=== PATIENT | female | born 1955 | race Caucasian/White ===

== ENCOUNTER 2017-11-09 08:00 | Outpatient (CLI) | payer OTHER | END 2017-11-09 08:01 | disposition home or self-care (01) | LOC: BICMAMMO 08:00 | PROVIDERS: ATTEND Family Medicine | DX: Z12.31 Encounter for screening mammogram for malignant neoplasm of breast (principal) | CPT/HCPCS: 77063; 77067; G0202 ==

== ENCOUNTER 2018-12-21 08:07 | Outpatient (CLI) | payer OTHER | END 2018-12-21 08:08 | disposition home or self-care (01) | LOC: BICMAMMO 08:07 | PROVIDERS: ATTEND Family Medicine | DX: Z12.31 Encounter for screening mammogram for malignant neoplasm of breast (principal); Z85.43 Personal history of malignant neoplasm of ovary | CPT/HCPCS: 77063; 77067 ==

== ENCOUNTER 2020-09-24 09:09 | Outpatient (CLI) | payer OTHER ==
--- NOTE | 2020-09-24 09:25 | RAD ---
XR Chest Pa Lat STANDARD HISTORY: Chest pain COMPARISON: 04/20/2017 FINDINGS: The heart size is normal. The lungs are well expanded without focal areas of consolidation, pneumothorax or pleural effusions. Calcified granuloma in the left upper lobe is stable. There are mild degenerative changes in the spine. IMPRESSION: No radiographic evidence of acute cardiopulmonary process.
== END 2020-09-24 09:10 | disposition home or self-care (01) ==
LOC: BICRAD 09:09
PROVIDERS: ATTEND Internal Medicine Hematology & Oncology
DX: R07.9 Chest pain, unspecified (principal)
CPT/HCPCS: 71046

== ENCOUNTER 2020-10-13 09:47 | Outpatient (CLI) | payer OTHER ==
[2020-10-13] MEDS ORDERED: Magnevist 469MG/ML 20 ML VIAL ONE (10:37)
--- NOTE | 2020-10-13 13:09 | MRI ---
MRI THORACIC SPINE WITH AND WITHOUT CONTRAST: Date: 10/13/2020 INDICATION: Malignant neoplasm right ovary. Left scapular pain. FINDINGS: The thoracic vertebra maintain normal height and alignment. There are mild to moderate degenerative c hanges noted. Degenerative end plate signal changes are noted at T8-T9 and T9-T10. Mild loss of disc space at these levels. No abnormal edema. No evidence of metastatic disease to the thoracic spine. Mild disc bulge at T8-T9 flattens the anterior thecal sac. The anterior subarachnoid space is preserv ed. Broad based bulge at T9-T10 abuts the anterior cord. Mild diffuse disc bulge at T10-T11 effaces the anterior subarachnoid space. Thoracic cord signal appears normal. IMPRESSION: 1. Mild degenerative changes of the thoracic spine. 2. No evidence of metastatic disease to the thoracic spine. Scapula is not adequately evaluated on t his exam and if there is concern for scapular lesion, suggest further evaluation with CT chest. 3. There are mild disc bulges as described above in the lower thoracic spine. POS: [facility]
== END 2020-10-13 09:48 | disposition home or self-care (01) ==
LOC: BICMRI 09:47
PROVIDERS: ATTEND Internal Medicine Hematology & Oncology
DX: C56.1 Malignant neoplasm of right ovary (principal); M25.512 Pain in left shoulder; M47.814 Spondylosis without myelopathy or radiculopathy, thoracic region; M51.84 Other intervertebral disc disorders, thoracic region
CPT/HCPCS: 72157; A9579

== ENCOUNTER 2021-09-23 09:34 | Outpatient (CLI) | payer BC | END 2021-09-23 09:35 | disposition home or self-care (01) | LOC: BICRAD 09:34 | PROVIDERS: ATTEND Internal Medicine Hematology & Oncology | DX: M54.6 Pain in thoracic spine (principal); C56.1 Malignant neoplasm of right ovary; M47.812 Spondylosis without myelopathy or radiculopathy, cervical region | CPT/HCPCS: 72040 ==

== ENCOUNTER 2023-03-07 06:20 | Day surgery (SDC) | payer BC ==
[2023-03-06 14:46] VITALS: BMI 28.6
[~2023-03-07 06:20] MED LIST: EPINEPHrine 0.3 MG in Ophthalmic Irrigation Solution 500 ML IRR SCH
[2023-03-07] MEDS ORDERED: fentaNYL 50 mcg/mL 1 mL Vial ONE (06:39)
[2023-03-07] MEDS ORDERED: Midazolam HCl 2 mg/2 ml Vial ONE (06:39)
[2023-03-07] MEDS ORDERED: Cyclopentolate 1% Opth Drop 2 ML BOT ONE (06:47)
[2023-03-07] MEDS ORDERED: Phenylephrine 2.5% Ophth Soln 5 ML BOT ONE (06:47)
[2023-03-07] MEDS ORDERED: PROPOFOL 20 ML ONE (06:51)
[2023-03-07] MEDS ORDERED: Triamcinolone 40 MG/ML VIAL ONE (07:28)
[2023-03-07] MEDS ORDERED: Maxitrol 0.1% Opth Oint 3.5 GM TUBE ONE (07:28)
[2023-03-07] MEDS ORDERED: CEFAZOLIN 1 GM VIAL ONE (07:28)
[2023-03-07] MEDS ORDERED: Bupivacaine 0.75% 10 ML VIAL ONE (07:28)
[2023-03-07] MEDS ORDERED: Lidocaine 4% PF 5 ML AMP ONE (07:28)
[2023-03-07] MEDS ORDERED: Lidocaine 1% PF 5 ML VIAL ONE (07:28)
== END 2023-03-07 08:40 | disposition home or self-care (01) ==
LOC: SDC 06:20
PROVIDERS: ATTEND Ophthalmology Retina Specialist
PROC: 08NE3ZZ Release Right Retina, Percutaneous Approach (ICD-10-PCS; principal; 2023-03-07)
PROC: 08T43ZZ Resection of Right Vitreous, Percutaneous Approach (ICD-10-PCS; principal; 2023-03-07)
DX: H43.391 Other vitreous opacities, right eye (principal); Z79.82 Long term (current) use of aspirin; Z79.899 Other long term (current) drug therapy; Z91.048 Other nonmedicinal substance allergy status; Z98.49 Cataract extraction status, unspecified eye; Z96.1 Presence of intraocular lens
CPT/HCPCS: J0171; J0690; J2250; J2704; J3010; J3301; J3490

== ENCOUNTER 2023-05-24 14:19 | Outpatient (CLI) | payer MEDICARE, OTHER | END 2023-05-24 14:20 | disposition home or self-care (01) | LOC: BICMAMMO 14:19 | PROVIDERS: ATTEND Family Medicine | DX: Z13.820 Encounter for screening for osteoporosis (principal); M81.0 Age-related osteoporosis without current pathological fracture; M85.851 Other specified disorders of bone density and structure, right thigh; M85.852 Other specified disorders of bone density and structure, left thigh; Z78.0 Asymptomatic menopausal state | CPT/HCPCS: 77080 ==

== ENCOUNTER 2023-07-04 06:15 | Day surgery (SDC) | payer MEDICARE, OTHER ==
[2023-07-03 13:43] VITALS: BMI 29.7
[2023-07-04] MEDS ORDERED: PHENYLephrine 2.5% Ophth Soln 15 ml Bottle ONE (06:36)
[2023-07-04] MEDS ORDERED: Cyclopentolate W/ Phenylephrin 40 DROP/2 ML BOT ONE (06:37)
[2023-07-04] MEDS ORDERED: fentaNYL 50 mcg/mL 1 mL Vial ONE (07:35)
[2023-07-04] MEDS ORDERED: Midazolam HCl 2 mg/2 ml Vial ONE (07:35)
[2023-07-04] MEDS ORDERED: CEFAZOLIN 1 GM VIAL ONE (07:45)
[2023-07-04] MEDS ORDERED: Triamcinolone 40 MG/ML VIAL ONE (07:45)
[2023-07-04] MEDS ORDERED: PROPOFOL 200 MG/20 ML VIAL ONE (07:45)
[2023-07-04] MEDS ORDERED: Maxitrol 0.1% Opth Oint 3.5 GM TUBE ONE (07:45)
[2023-07-04] MEDS ORDERED: Lidocaine 1% PF 5 ML VIAL ONE (07:45)
[2023-07-04] MEDS ORDERED: Bupivacaine 0.75% 10 ML VIAL ONE (07:45)
[2023-07-04] MEDS ORDERED: Lidocaine 4% PF 5 ML AMP ONE (07:45)
== END 2023-07-04 09:08 | disposition home or self-care (01) ==
LOC: SDC 06:15
PROVIDERS: ATTEND Ophthalmology Retina Specialist
PROC: 08T53ZZ Resection of Left Vitreous, Percutaneous Approach (ICD-10-PCS; principal; 2023-07-04)
DX: H43.392 Other vitreous opacities, left eye (principal)
CPT/HCPCS: J0171; J0690; J2250; J2704; J3010; J3301; J3490

== ENCOUNTER 2023-11-29 15:49 | Outpatient (CLI) | payer MEDICARE, OTHER | END 2023-11-29 15:50 | disposition home or self-care (01) | LOC: BICRAD 15:49 | PROVIDERS: ATTEND Family Medicine | DX: R07.81 Pleurodynia (principal); S22.31XD Fracture of one rib, right side, subsequent encounter for fracture with routine healing | CPT/HCPCS: 71046 ==